=== PATIENT | female | born 1965 | race Two or more races ===

== ENCOUNTER → 2017-01-10 | Outpatient (CLI) | payer OTHER ==
[~2017-01-10] VITALS: Ht 170.2 cm; Wt 67.1 kg
[~2017-01-10] MED LIST: DEPA1TAB3 PO; HYOS0.1248 PO; IBUP80TA PO; IMIT6INJ SC; LIDOCAINE 2% INJ 100 MG/5 ML SDV (FOR ANES.) As Ordered ONE; LYRI100C10 PO; NS 1,000 ML IV SCH; PROPOFOL 200 MG/20 ML VIAL As Ordered ONE; RELP40TA PO; TYLETAB14 PO; ZANA4CAP PO; ZOLO100T PO; ZYRT10CA PO
--- NOTE | 2017-01-10 12:52 | ROOR ---
Patient Name: Martha Cobb Procedure Date: 01/10/2017 12:43 PM Date of : 1965 Age: 51 Room: [facility] Gender: Female Note Status: Finalized Procedure: Upper GI endoscopy Indications: Functional Dyspepsia Providers: Collins PADILLA MD Referring MD: HANG MAURICIO MD Requesting Provider: Medicines: Monitored Anesthesia Care Complications: No immediate complications. Procedure: Pre-Anesthesia Assessment: - The heart rate, respiratory rate, oxygen saturations, blood pressure, adequacy of pulmonary ventilation, and response to care were monitored throughout the procedure. The Endoscope was introduced through the mouth, and advanced to the third part of duodenum. The upper GI endoscopy was accomplished without difficulty. The patient tolerated the procedure well. Findings: The esophagus was normal. The stomach was normal. The examined duodenum was normal. Impression: - Normal esophagus. - Normal stomach. - Normal examined duodenum. - No specimens collected. Recommendation: - Observe patient's clinical course. - Continue present medications. - Lactose free diet. Collins Padilla MD Collins PADILLA MD 01/10/2017 12:52:18 PM This report has been signed electronically. Number of Addenda: 0 Note Initiated On: 01/10/2017 12:43 PM Estimated Blood Loss: Estimated blood loss: none.
--- NOTE | 2017-01-10 13:06 | ROOR ---
Patient Name: Martha Cobb Procedure Date: 01/10/2017 12:44 PM Date of : 1965 Age: 51 Room: [facility] Gender: Female Note Status: Finalized Procedure: Colonoscopy Indications: Irritable bowel syndrome with constipation, Mixed irritable bowel syndrome Providers: Collins PADILLA MD Referring MD: HANG MAURICIO MD Requesting Provider: Medicines: Monitored Anesthesia Care Complications: No immediate complications. Procedure: Pre-Anesthesia Assessment: - The heart rate, respiratory rate, oxygen saturations, blood pressure, adequacy of pulmonary ventilation, and response to care were monitored throughout the procedure. The Colonoscope was introduced through the anus and advanced to 5 cm into the ileum. The colonoscopy was performed without difficulty. The patient tolerated the procedure well. The quality of the bowel preparation was good. Findings: The perianal and digital rectal examinations were normal. Mild melanosis was found in the entire colon suggestive of chronic laxative use. The entire colon appeared normal on direct and retroflexion views. The terminal ileum appeared normal. Impression: - The entire colon is normal on direct and retroflexion views. - The examined portion of the ileum was normal. - Small internal hemorrhoids. - No specimens collected. - (Irritable Bowel Syndrome/IBS-C suspected.) Recommendation: - Use fiber, for example Citrucel, Fibercon, Konsyl or Metamucil. - Miralax 1 capful (17 grams) in 8 ounces of water PO daily. Collins Padilla MD Collins PADILLA MD 01/10/2017 1:06:29 PM This report has been signed electronically. Number of Addenda: 0 Note Initiated On: 01/10/2017 12:44 PM Estimated Blood Loss: Estimated blood loss: none.
[2017-01-10 13:28] VITALS: BP 123/78
== END ==
LOC: M OPP 10:21
PROVIDERS: ATTEND Internal Medicine Gastroenterology
DX: K58.2 Mixed irritable bowel syndrome (principal); K58.1 Irritable bowel syndrome with constipation; K63.89 Other specified diseases of intestine; K30 Functional dyspepsia; M79.7 Fibromyalgia; G43.909 Migraine, unspecified, not intractable, without status migrainosus; Z79.899 Other long term (current) drug therapy

== ENCOUNTER → 2017-02-14 | Outpatient (REF) | payer OTHER ==
[~2017-02-14] MED LIST changes: -LIDOCAINE 2% INJ 100 MG/5 ML SDV (FOR ANES.) As Ordered ONE; -NS 1,000 ML IV SCH; -PROPOFOL 200 MG/20 ML VIAL As Ordered ONE
== END ==
LOC: M SFHCWAGY 15:25
PROVIDERS: ATTEND Nurse Practitioner Family
DX: Z12.31 Encounter for screening mammogram for malignant neoplasm of breast (principal); Z12.4 Encounter for screening for malignant neoplasm of cervix
CPT/HCPCS: 87624; G0123

== ENCOUNTER → 2017-02-14 | Outpatient (CLI) | payer OTHER ==
--- NOTE | 2017-02-17 09:05 | REPMRS ---
Patient History The patient states she had a clinical breast exam in 02/19 No known family history of cancer. Benign excisional biopsy of the right breast, 2010. Implants in both breasts, 2001. Digital Woman Screen Mammo: February 14, 2017 - Exam #: [id number] Bilateral CC and MLO view(s) were taken. Technologist: Dianne Blakely, Technologist No prior studies available for comparison. FINDINGS: There are scattered fibroglandular densities. The visualized implant margins are smooth. Breast parenchymal density pattern is essentially symmetric. There is a needle biopsy marker clip in the left breast superiorly adjacent to some microcalcifications. No dominant mass, clustered microcalcification, or archetectural distortion is evident on either side. No significant changes when compared with prior studies. ASSESSMENT: BI-RADS/ACR category 2 mammogram. Benign finding(s). Recommendation Routine screening mammogram of both breasts in 1 year (for women over age 40). Electronically Signed By: Butch Zavala MD 02/17/17 0931
== END ==
LOC: M WHC 14:44
PROVIDERS: ATTEND Nurse Practitioner Family
DX: Z12.31 Encounter for screening mammogram for malignant neoplasm of breast (principal)
CPT/HCPCS: G0202; G0463